=== PATIENT | male | born 1965 | race Caucasian/White ===

== ENCOUNTER 2020-01-25 11:01 | Emergency (ER) | payer OTHER, SELFPAY ==
[2020-01-25 11:03] VITALS: BP 161/84; PULSE 110; RESP 17; TEMP 36.3; O2SAT 97; BMI 31.6
[2020-01-25] MEDS: Ondansetron 4 MG/2 ML Vial IV (11:29)
[2020-01-25] MEDS: HYDROmorphone 1 MG/ML Syringe IV ×2 (11:32→12:28)
[2020-01-25] MEDS: 0.9% Normal Saline 1,000 ML 125 ML IV (11:44)
[2020-01-25 11:47] LABS: Absolute Lymphocyte Count 1.94 X10^3/uL (0.83-4.51); Absolute Neutrophil Count 5.7 X10^3/uL (2.0-7.7); Basophil# 0.04 X10^3/uL; Basophil% 0.5 % (0-1); Eosinophil# 0.26 X10^3/uL; Hematocrit 46.9 % (40-54); Hemoglobin 16.1 g/dL (13.0-16.5); Lymphocyte # 1.94 X10^3/ul (4.0); Lymphocyte % 22.5 % (19-41); Mean Corp Hgb Conc 34.3 g/dL (32-36); Mean Corpuscular Hgb 31.3 pg (27.0-32.0); Mean Corpuscular Volume 91.2 fL (80-94); Monocyte% 8.1 % (0-10); NRBC Flagged by Analyzer 0 % (0-5); Neutrophil # 5.68 X10^3/uL (2.7-7.7); Neutrophil % 65.7 % (47-70); Platelet Count 250 K/mm3 (150-450); RBC Distribution Width CV 11.9 % (11.6-14.6); RBC Distribution Width SD 39.9 fl (35.1-43.9); Red Blood Count 5.14 M/mm3 (4.6-6.2); White Blood Count 8.6 K/mm3 (4.4-11.0)
[2020-01-25 12:04] LABS: AST(SGOT) 14 U/L (15-37); Alanine Aminotransfer ALT/SGPT 22 U/L (16-61); Albumin, Serum 3.8 g/dL (3.2-5.0); Alkaline Phosphatase 93 U/L (45-117); Anion Gap 7 (5-15); BUN 15 mg/dL (7-18); BUN/Creat Ratio 16.7 RATIO (10-20); Calcium,Total 9.4 mg/dL (8.5-10.1); Chloride 106 mmol/L (98-107); EST Glomerular Filtration Rate 94 mL/min (>60); Est Glom Filt Rate - Afr Amer 114 mL/min (>60); Estimated Creatinine Clearance 117.88 ml/min; Globulin 3.9 g/dL (2.2-4.2); Glucose 98 mg/dL (74-106); Lipase 203 U/L (73-393); Protein, Total 7.7 g/dL (6.4-8.2); Sodium Level 137 mmol/L (136-145)
--- NOTE | 2020-01-25 12:07 | CT_ITS ---
STUDY: CT ABDOMEN AND PELVIS WITH CONTRAST REASON FOR EXAM: Male, 54 years old. Abdominal pain LUQ x 1 week, nausea/vomiting, hx pancreatitis, hypertension. RADIATION DOSAGE (If Supplied By Facility): CTDIvol = ( 21.28 ) mGy, DLP = ( 1295.17 ) mGycm TECHNIQUE: Transaxial images were obtained from the dome of the diaphragm to the symphysis pubis with oral contrast. Oral and amp; IV Gastrografin and amp; 100mL Isovue-300 was administered. Sagittal and coronal images were reconstructed. Individualized dose optimization techniques were used for this CT. COMPARISON: None. FINDINGS: The visualized lung bases are unremarkable. The visualized portions of the heart are within normal limits. There is decreased attenuation of the liver consistent with steatosis. Normal gallbladder and extrahepatic biliary system. Normal spleen. Mild degree of increased markings surrounding the uncinate process of the pancreas as well as the head of the pancreas. Findings may represent localized acute pancreatitis noncomplicated. Normal bilateral adrenal glands. There is a 1.5 cm cyst in the lower pole of the right kidney. There is a 1.5 cm cyst in the posterior midportion of the left kidney. There is a small hiatal hernia. Normal small intestine. There are multiple colonic diverticula consistent with diverticulosis. The appendix is visualized and appears normal. There is scattered atherosclerotic calcification of the abdominal aorta, without a demonstrated aneurysm. Normal inferior vena cava. There is borderline retroperitoneal lymphadenopathy with enlarged nodes no greater than 10mm in the short axis diameter. Normal urinary bladder. There is a small umbilical hernia containing fat. Moderate right sided inguinal hernia containing fat. Small left inguinal hernia containing fat. There are mild degenerative changes of the visualized lumbar spine. CT/Abdomen/Pelvis WITH Contrast IMPRESSION: Findings suggestive of mild degree of the inflammatory changes surrounding the head and uncinate process of the pancreas as described. Localized pancreatitis should be ruled out. Fatty infiltration of the liver. Small bilateral renal cysts. Sigmoid diverticulosis. Electronically Signed: Matthew Reddy, at 14:31 EDT , Service support ,
--- NOTE | 2020-01-25 14:48 | ED.DCSUM_ITS ---
- ER Visit Summary Date of Service: 01/25/20 Chief Complaint: [Abdominal pain] History of Present Illness: The patient is a 54 M [presents to the emergency department complaint of abdominal pain for about a week. Patient rates his pain as a 7 or 8 out of 10. Patient describes it as in his upper abdomen radiating through to his back. Patient has history of pancreatitis and feels like symptoms are similar to past episodes. Patient states that food does seem to make it worse. He has not had a bowel movement in 3 days but is not concerned because he is just not been eating very much has been try to stick to clear liquids. Patient also has history of hypertension. Patient states he moved back to [place] about 6 months ago and currently does not have a primary care physician. No prior surgical history. Patient is a smoker. Patient drinks alcohol occasionally.] Physical Examination: [HEENT-PERRLA, EOMI. Cranial nerves II through XII grossly intact. TMs clear. Mucous membranes moist. No adenopathy. Cardiovascular-regular rate and rhythm without murmur or ectopy Lungs-clear to auscultation, chest wall stable without crepitus or subcu emphysema Abdomen-normoactive bowel sounds, soft. Patient has tenderness diffusely over the epigastric region and left upper quadrant. Patient is some guarding. There is no rebound, rigidity, or peritoneal signs. Extremities-intact ?4, normal range of motion, normal pulses, atraumatic] Test Results: [EKG obtained arrival shows sinus rhythm with a ventricular rate of 92 bpm with no acute segment changes. CBC with differential was normal. Chemistries normal. LFTs normal. Lipase was 203. Troponin was less than 0.015. CT scan of the abdomen and pelvis obtained was read by radiology as mild inflammatory changes around the head and uncinate process of the pancreas and localized pancreatitis should be ruled out. Nothing else significant on the scan.] Emergency Department Course and Treatment: [On arrival patient had an IV line established and was given a liter normal same fluid bolus. Patient treated with Dilaudid 1 mg IV and Zofran 4 mg IV. Patient continued complaint of pain and was given a second milligram of Dilaudid IV.] Treatment Plan: [Patient would like to try to go home and does not feel like he requires admissions at this time. I will give him a prescription for Percocet for pain. I advised him on pushing fluids. Patient will be given Zofran. Patient advised to return if persistent pain, fever, vomiting, dehydration, or condition should worsen anyway. I suspect patient likely having flareup of chromium plater douglas pancreatitis] Disposition: [Discharged home in stable condition] Impression: [Abdominal pain Acute on chronic pancreatitis] This note was generated with Cadent dictation software. It may contain incorrect words, spelling, and punctuation that were not noted in review of the chart prior to signing ED Disposition - Plan for ED Patient: Referrals: Care Physician,No Primary [Primary Care Provider] -
--- NOTE | 2020-01-25 14:51 | ED.DEP ---
ED Disposition - Plan for ED Patient: Instructions: ED Pancreatitis Prescriptions: Oxycodone HCl/Acetaminophen [Percocet 5/325] 1 tablet PO Q6H PRN PRN 3 Days #17 tablet PRN Reason: Pain Transmission Status: Received by [id number] Ondansetron [Zofran Odt] 4 mg PO Q8H PRN PRN #10 tab PRN Reason: Nausea Transmission Status: Pending to [id number] Referrals: Care Physician,No Primary [Primary Care Provider] - Washington Go MD [STAFF PHYSICIAN] - 3-5 Days Wally Manriquez DO [STAFF PHYSICIAN] - 3-5 Days
[2020-01-25 15:38] VITALS: BP 156/72; RESP 14; RESP 16
== END 2020-01-25 15:39 | disposition home or self-care (01) ==
PROVIDERS: Emergency Provider Emergency Medicine
DX: K85.90 Acute pancreatitis without necrosis or infection, unspecified (principal); K86.1 Other chronic pancreatitis; I10 Essential (primary) hypertension; F17.200 Nicotine dependence, unspecified, uncomplicated
CPT/HCPCS: 74177; 80053; 83690; 84484; 85025; 93005; 96361; 96374; 96375; 96376; 99283; J7030; Q9967; A4216; J2405

== ENCOUNTER → 2024-09-15 | Outpatient (CLI) | payer OTHER, SELFPAY ==
--- NOTE | 2024-09-15 13:30 | COLBX_PTH ---
PATIENT: ANGI NICOLE LOC: [facility] U#:[id number] AGE/SX: 59/M ROOM: RE09/15/[address]: Dr. Washington Go MD : [id number] BED: DIS: 09/15/2024 SPEC #: [id number] RECD: 09/15/24 15:00 STATUS: ENRIQUE REYg #: [id number] MARK: 09/15/24 13:[address]: Washington Go DEPT: SURGICAL PATHOLOGY RECD BY: Mirta Henson ENTERED: 09/18/24 10:34 SP TYPE: COLON BX OTHR DR: No Primary Care Phys Tissues: A - Sigmoid colon biopsy B - Sigmoid colon biopsy Procedures: Surgery Specimen Level IV HEADER OPERATION: Colonoscopy PRE-OP DIAGNOSIS: Screening TISSUE SUBMITTED: A- Sigmoid colon polyp (proximal), B- Sigmoid colon polyp (distal) MICROSCOPIC DIAGNOSIS A. Sigmoid colon polyp (proximal), polypectomy: Tubular adenoma. B. Sigmoid colon polyp (distal), polypectomy: Tubular adenoma. RICKIE. 09/19/2024 MICROSCOPIC DESCRIPTION Slides are reviewed. GROSS DESCRIPTION A. Received in fixative is one container labeled with the patient's name and designated Proximal sigmoid colon polyp. The specimen consists of a parsons-pink polyp measuring 0.7 x 0.5 x 0.3cm. The entire specimen is submitted in one cassette. B. Received in fixative is one container labeled with the patient's name and designated Distal sigmoid colon polyp. The specimen consists of a pink-red polyp measuring 1.0 x 0.6 x 0.8 cm. The presumed base is inked. The polyp is bisected and submitted entirely in one cassette. RICKIE. 09/18/2024 TC:1 CPT:98097u5
== END | disposition home or self-care (01) ==
LOC: LABSPEC 15:32
PROVIDERS: Referring Provider Surgery; Visit Provider Surgery
DX: D12.5 Benign neoplasm of sigmoid colon (principal)